=== PATIENT | female | born 2005 | race Hispanic/Latino ===

== ENCOUNTER 2023-10-01 00:27 | Emergency (ER) | payer OTHER, SELFPAY ==
[~2023-10-01] VITALS: Ht 170.2 cm; Wt 58.3 kg
[2023-10-01 01:32] LABS: BASO % 0.2 % (0.0-1.0); EOS # 0.2 10^3/uL (0.0-0.5); EOS % 1.2 % (0.0-3.0); HEMATOCRIT 46.1 % (36.0-47.0); HEMOGLOBIN 15.4 g/dl (12.0-15.5); LYMPH # 0.8 10^3/uL (1.5-5.0); LYMPH % 5.1 % (24.0-44.0); MEAN CORPUSCULAR HGB CONC 33.4 g/dl (32.0-36.5); MEAN CORPUSCULAR VOLUME 83.8 fl (80.0-96.0); MONO # 0.8 10^3/uL (0.0-0.8); MONO % 4.8 % (2.0-8.0); NEUTROPHILS # 14.6 10^3/uL (1.5-8.5); NEUTROPHILS % 88.4 % (36.0-66.0); PLATELET COUNT, AUTOMATED 334 10^3/uL (150-450); WHITE BLOOD COUNT 16.6 10^3/uL (4.0-10.0)
[2023-10-01 02:53] LABS: ALBUMIN 4.1 G/DL (3.2-5.2); ALKALINE PHOSPHATASE 78 U/L (46-116); ALT/SGPT 20 U/L (7.0-40); AST/SGOT 17 U/L (<34); BILIRUBIN,TOTAL 0.8 MG/DL (0.3-1.2); BLOOD UREA NITROGEN 20 MG/DL (9-23); CALCIUM LEVEL 9.7 MG/DL (8.5-10.1); CARBON DIOXIDE LEVEL 26 MMOL/L (20-31); CHLORIDE LEVEL 102 MMOL/L (98-107); CREATININE FOR GFR 0.59 MG/DL (0.55-1.30); GLUCOSE, FASTING 130 MG/DL (60-100); SODIUM LEVEL 139 MMOL/L (136-145); TOTAL PROTEIN 7.7 G/DL (5.7-8.2)
[2023-10-01 03:00] LABS: HCG, SERUM QUALITATIVE NEGATIVE (NEGATIVE)
[2023-10-01 04:13] LABS: HIV 1&2 SCREEN NEGATIVE (NEGATIVE)
[2023-10-01 04:20] LABS: HEPATITIS C VIRUS ABY INDEX < 0.02 INDEX (<0.8)
[2023-10-01 04:20] LABS: Trichomonas vaginalis (AMP) NOT DETECTED (NEGATIVE)
[2023-10-01 04:21] LABS: HEPATITIS B CORE ANTIBODY IGM NEGATIVE (NEGATIVE)
[2023-10-01 04:44] LABS: GC DNA AMPLIFICATION NEGATIVE (NEGATIVE)
[2023-10-01] MEDS: ONDANSETRON 4MG 2ML VIAL IV ONE (05:24)
[2023-10-01] MEDS: NS 1,000 ML IV ONE (05:25)
[2023-10-01] MEDS ORDERED: ONDA4TAB6 PO (06:28)
[2023-10-01 06:35] VITALS: BP 110/57; TEMP 98.7; O2SAT 100
== END 2023-10-01 06:52 | disposition home or self-care (01) ==
LOC: M ED 00:27
DX: A08.11 Acute gastroenteropathy due to Norwalk agent (principal); Z79.83 Long term (current) use of bisphosphonates
CPT/HCPCS: 80053; 80074; 81001; 84703; 85025; 86780; 87389; 87507; 87661; 87810; 87850; 96374; 99284; J2405